=== PATIENT | female | born 1945 | race Caucasian/White ===

== ENCOUNTER 2023-10-11 08:41 | Outpatient (REF) | payer MEDICARE, SELFPAY | END 2023-10-11 08:42 | disposition home or self-care (01) | LOC: CF 08:41 | DX: Z13.89 Encounter for screening for other disorder (principal) ==

== ENCOUNTER 2023-11-02 19:25 | Outpatient (REF) | payer MEDICARE, SELFPAY ==
--- NOTE | ~2023-11-02 | MR_ITS ---
EXAMINATION: MR BRAIN WITHOUT CONTRAST CLINICAL INFORMATION: Cerebellar ataxia. COMPARISON: None available. TECHNIQUE: MRI of the brain was obtained using routine sequences without contrast. FINDINGS: No focal restricted diffusion is demonstrated to suggest acute or subacute cerebral ischemia. No evidence of acute or chronic hemorrhagic products on heme-sensitive imaging. Scattered and partially confluent periventricular, deep white matter, and brainstem T2 FLAIR hyperintensities consistent with moderate underlying microangiopathy. Proportional prominence of the ventricles and sulcal spaces without evidence of obstructive hydrocephalus. No abnormal mass effect. No midline shift. Normal appearance of the pituitary gland. Normal positioning of the cerebellar tonsils. Normal arterial and venous vascular flow voids are present. Normal, homogeneous marrow signal. Mild mucosal thickening of the paranasal sinuses. No signal abnormalities within the mastoids. Bilateral lens extractions. MR/MR head/brain wo con IMPRESSION: 1. No acute intracranial abnormalities. 2. Moderate underlying microangiopathy and generalized cerebral volume loss.
== END 2023-11-02 19:26 | disposition home or self-care (01) ==
LOC: HO.MRI 19:25
PROVIDERS: PCP Nurse Practitioner Family; Visit Provider Psychiatry & Neurology Neurology
DX: G11.9 Hereditary ataxia, unspecified (principal)
CPT/HCPCS: 70551

== ENCOUNTER 2023-12-06 14:38 | Outpatient (REF) | payer MEDICARE, SELFPAY ==
--- NOTE | ~2023-12-06 | MR_ITS ---
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 COMPARISON: 11/02/2023 MRI. TECHNIQUE: MRI of the brain was obtained using precontrast sagittal T1 and coronal T1 and and precontrast axial FLAIR sequences followed by axial and coronal T1-weighted sequences with contrast. Intravenous contrast: Gadavist 5.0 mL. FINDINGS: Redemonstrated are scattered patchy zones of FLAIR/T2 signal hyperintensity in the white matter of both cerebral hemispheres similar in appearance to the previous study with no abnormal enhancement, consistent with chronic ischemic microangiopathy. There is a nonenhancing 7 mm zone of T2 hyperintensity in the right dorsal ashutosh stable in appearance. There is a 2 mm nonenhancing T2 hyperintensity in the right ashutosh more inferiorly unchanged. No intracranial mass lesions, space occupying process or mass effect and no evidence for pathologic intracranial enhancement. MR/MR head/brain w con IMPRESSION: 1. Stable chronic ischemic microangiopathy in the white matter of both cerebral hemispheres and in the right ashutosh. 2. No intracranial mass lesions or pathologic intracranial enhancement. Electronically signed by: Mitchell He MD 12/26/2023 05:46 PM EDT
[2023-12-06] MEDS: gadobutroL 7.5 ML VIAL IVPUSH (15:45)
== END 2023-12-06 14:39 | disposition home or self-care (01) ==
LOC: HO.MRI 14:38
PROVIDERS: PCP Nurse Practitioner Family; Visit Provider Psychiatry & Neurology Neurology
DX: G93.49 Other encephalopathy (principal)
CPT/HCPCS: 70552; A9585

== ENCOUNTER 2024-02-10 09:21 | Day surgery (SDC) | payer MEDICARE, SELFPAY ==
--- NOTE | ~2024-02-10 | FL_ITS ---
FLUOROSCOPIC GUIDED LUMBAR PUNCTURE INDICATION: Leukoencephalopathy TECHNIQUE: Risks and benefits and possible complications were discussed with the patient and the consent form was signed. Patient was placed prone on the fluoroscopy table. The back was prepped and draped in routine sterile fashion. Betadine was used as a skin antiseptic. Utilizing fluoroscopic guidance, the L3-4 interlaminar space was accessed with a 22 gague Rell spinal needle and clear CSF fluid was obtained. Opening pressure was 6 cm H2O. 9 cc of fluid was sent for analysis. The needle was removed without immediate complications. Total fluoroscopy time: 0.3 min FL/FL guided lumbar puncture LP IMPRESSION: Successful fluoroscopic guided lumbar puncture at L3-L4. This procedure was performed by Jake Zamora PA-C and supervised by Dr. York. Electronically signed by: Timothy York MD 02/10/2024 01:50 PM EDT
[2024-02-10 09:56] VITALS: BMI 19.7
[2024-02-10 11:45] VITALS: BP 146/87; PULSE 50; RESP 16; TEMP 36.8; O2SAT 97
[2024-02-10 12:09] VITALS: BP 152/63; PULSE 51; RESP 16; O2SAT 97
[2024-02-10 12:19] LABS: CSF Appearance Clear, Colorless; CSF Tube # 1
[2024-02-10 12:26] LABS: Glucose CSF 67 mg/dL; Total Protein CSF 30.4 mg/dL (15-45)
[2024-02-10 12:39] VITALS: BP 118/83; PULSE 57; RESP 16; TEMP 36.8; O2SAT 97
[2024-02-10 12:51] LABS: Appearance CSF CLEAR; CSF Tube # 4; Color CSF COLORLESS; Red Blood Cell CSF 0 MM*3; White Blood Cell CSF 0 MM*3
[2024-02-13 16:09] LABS: Albumin 3.7 g/dL (3.6-5.1); Albumin, CSF 15.5 mg/dL (8.0-42.0); IgG 1280 mg/dL (600-1540); IgG Synthesis Rate -3.9 mg/24 h (-9.9-3.3); IgG, CSF 2.6 mg/dL (0.8-7.7)
[2024-02-14 12:13] LABS: Oligoclonal Banding Absent (Absent)
[2024-02-15 13:50] LABS: Oligoclonal Serum Yes
== END 2024-02-10 12:44 | disposition home or self-care (01) ==
LOC: HO.SSS 09:22
PROVIDERS: Physician Assistant Surgical; PCP Nurse Practitioner Family; Visit Provider Psychiatry & Neurology Neurology
PROC: 009U3ZZ Drainage of Spinal Canal, Percutaneous Approach (ICD-10-PCS; CPT 62270; principal; 2024-02-10 11:00)
DX: G93.49 Other encephalopathy (principal); G11.9 Hereditary ataxia, unspecified; G47.10 Hypersomnia, unspecified; Z91.81 History of falling; Z88.1 Allergy status to other antibiotic agents
CPT/HCPCS: 62328; 82042; 82945; 83519; 83520; 83916; 84157; 86052; 86255; 86341; 87015; 87070; 87205; 89051; J2003

== ENCOUNTER → 2024-02-10 11:00 | Outpatient (BNV) | payer MEDICARE, SELFPAY | PROVIDERS: PCP Nurse Practitioner Family; Visit Provider Physician Assistant Surgical | DX: G00-G99 Diseases of the nervous system (principal) | CPT/HCPCS: 62328 ==

== ENCOUNTER 2024-08-01 09:30 | Outpatient (RCR) | payer MEDICARE, SELFPAY ==
[2024-06-06 08:51] VITALS: BP 150/59; PULSE 58; RESP 16; TEMP 36.9; O2SAT 96
[2024-06-06 08:52] VITALS: BMI 21.4
[2024-06-06] MEDS: SODIUM CHLORIDE 0.9% IV (09:09)
[2024-06-06] MEDS: [UNRECOGNIZED DRUG - OTHER] IV (09:09)
[2024-06-20 08:14] VITALS: BP 137/58; PULSE 53; RESP 16; TEMP 36.3; O2SAT 97
[2024-06-20] MEDS: SODIUM CHLORIDE 0.9% IV (09:20)
[2024-06-20] MEDS: [UNRECOGNIZED DRUG - OTHER] IV (09:20)
--- NOTE | 2024-06-20 09:28 | HO.INF ---
pt and spouse state they will be travelingin the month of july so next appts will work around their travel arrangements
[2024-07-10 09:57] VITALS: BP 147/65; PULSE 53; RESP 16; TEMP 36.7; O2SAT 97
[2024-07-10] MEDS: [UNRECOGNIZED DRUG - OTHER] IV (10:22)
[2024-07-10] MEDS: SODIUM CHLORIDE 0.9% IV (10:22)
[2024-08-01 09:34] VITALS: BP 144/70; PULSE 56; RESP 20; TEMP 35.9; O2SAT 98
[2024-08-01] MEDS: SODIUM CHLORIDE 0.9% IV (10:00)
[2024-08-01] MEDS: [UNRECOGNIZED DRUG - OTHER] IV (10:00)
== END 2024-08-14 14:05 | disposition home or self-care (01) ==
LOC: HO.INF 09:30
PROVIDERS: Visit Provider Psychiatry & Neurology Neurology
DX: G30.9 Alzheimer's disease, unspecified (principal)
CPT/HCPCS: 96365; J0174

== ENCOUNTER 2024-08-11 10:18 | Outpatient (REF) | payer MEDICARE, SELFPAY ==
--- NOTE | ~2024-08-11 | MR_ITS ---
CLINICAL HISTORY: ALZHEIMERS DISEASE MR Brain without gadolinium Comparison: None Findings: No acute infarct. Cortical/subcortical 26 x 17 mm (AP by transverse dimensions) mass/masslike region within the medial aspect of the right occipital lobe (medial to the atrium of the right lateral ventricle). Further evaluation with contrast enhanced MRI recommended. Cerebral hemispheric volume loss within expected range for age. No evidence of asymmetric mesial temporal volume loss. Mild age-related cerebral hemispheric white matter ischemic changes. Mild FLAIR hyperintensity at/in the vicinity of the cerebellar vermis may be due to small-vessel ischemic disease. No midline shift. No hydrocephalus. Vascular flow voids are intact. Bilateral cataract surgery. The sinuses and mastoid air cells are clear. No focal bone lesion. IMPRESSION: Cortical/subcortical 26 x 17 mm mass/masslike region within the medial aspect of the right occipital lobe (medial to the atrium of the right lateral ventricle). Further evaluation with contrast enhanced MRI recommended. Cerebral hemispheric volume loss within expected range for age. No evidence of asymmetric mesial temporal volume loss. This document has been electronically signed by: Vivi Vang MD on 08/14/2024 13:03:33
--- OUTSIDE RECORDS SUMMARY | 2024-08-11 10:22 | XMS_ITS | Data Portability ---
Author Organization [place] - [facility], Allergy Address [address] [address] Care Team Providers Care Enamel Dipper Name Role Phone MATTEO REES Primary Care Provider Assessment Encounter Date Assessment Date Assessment LastModified by Organization Details LastModified Time 01/02/2024 01/02/2024 HT stable AU. CL & CK both sides working OK increased sensitivity on left transmitter to makes easier in car. Now 5 years old. Not ready to upgrade to new BiCros yet, but wants to proceed in June before HT expires. Recommended Oticon Real 1 miniRITE R/PX Cros #2 R/L 85 receivers #8 single vent domes in chroma beige color $4060. JULIA appt made in june. [email or web address] Not available 01/02/2024 15:13:55 07/04/2024 07/04/2024 Reviewed daily care and maintenance. Downloaded and demoed postdoctoral scholar bruce. Going to [place] soon will do follow up when back from that trip . will need to do real ear next time. [email or web address] Not available 07/04/2024 12:29:50 08/08/2024 08/08/2024 Doing very well. Back from recent trip to [place]. Very pleased with new BiCros aids. Hearing much better. Reviewed daily care and maintenance. Recent diagnosis of Alzheimer's - undergoing infusion therapy to treat. 6mo appt made prior to my fpc. [email or web address] Not available 08/08/2024 11:30:19 Plan of Treatment Reminders Order Date Submit Date Provider Last Modified By Organization Details Last Modified Time Details Appointments ORTIZ Fitting Follow Up (30) 2024 01:30P Buffy ASHRAF, PAYTON Not available Not available Not available Lab None recorded . Referral None recorded . Procedures None recorded . Surgeries None recorded . Imaging None recorded . Medication Orders None recorded . Patient TargetsNo targets recorded. Patient InstructionsNo instructions recorded. Reason for Referral None Reported. Results Created Date Observation Date Name Description Value Unit Range Abnormal Flag Note LastModifiedBy Organization Detail LastModifiedTime 12/07/19 24 07/05/2018 imagi ng/di agnos tic resul t No observ ation record ed. [email or web address] Not Available 05:14:00 12/07/19 24 07/12/2022 imagi ng/di agnos tic resul t No observ ation record ed. [email or web address] Not Available 05:14:06 12/07/19 24 07/31/2020 imagi ng/di agnos tic resul t No observ ation record ed. [email or web address] Not Available 05:14:12 12/07/19 24 07/05/2018 audio gram No observ ation record ed. [email or web address] Not Available 05:15:00 12/07/19 24 12/07/2021 audio gram No observ ation record ed. [email or web address] Not Available 05:15:06 12/07/19 24 07/13/2018 audio gram No observ ation record ed. [email or web address] Not Available 05:15:07 12/07/19 24 07/30/2021 audio gram No observ ation record ed. [email or web address] Not Available 05:15:15 12/07/19 24 07/31/2020 audio gram No observ ation record ed. [email or web address] Not Available 05:15:17 12/07/19 24 08/03/2018 audio gram No observ ation record ed. [email or web address] Not Available 05:15:19 12/07/19 24 08/17/2018 audio gram No observ ation record ed. [email or web address] Not Available 05:15:27 12/07/19 24 12/21/2018 audio gram No observ ation record ed. [email or web address] Not Available 05:15:31 12/07/19 24 02/27/2021 audio gram No observ ation record ed. [email or web address] Not Available 05:15:35 12/07/19 24 03/27/2021 audio gram No observ ation record ed. [email or web address] Not Available 05:15:38 01/02/20 audio gram No observ ation record ed. [email or web address] Not Available 2023 16:10:40 Result Notes None recorded. Problems Name Problem SNOMED Code Status Onset Date Resolution Date Notes Provider Name and Address Organization Details Recorded Time Gastroeso phageal reflux disease without esophagit is 896990222 Active 2022 Gastro-eso phageal reflux disease without esophagiti s; Note: Date Diagnosed: 09/21/2022 2:34 PM (K21.9) Not Available [facility] 03:22:19 Asymmetri iliana sensorine ural hearing loss 190062679 Active 2013 Sensorineu ral hearing los asymmetric ; Note: Date Diagnosed: 02/26/2014 1:52 PM (389.16) Not Available [facility] 4 03:22:19 Sensorine ural hearing loss of bilateral ears 695146151 Active 2015 Sensorineu ral hearing loss, bilateral; Note: Date Diagnosed: 08/14/2015 2:42 PM (H90.3) Not Available [facility] 4 03:22:19 Dysphonia 02957547 Active 2022 Hoarseness ; Note: Date Diagnosed: 09/21/2022 2:34 PM (R49.0) Not Available [facility] 4 03:22:19 Problem Notes None recorded. Procedures Surgical History Date Name Laterality Status Provider Name and Address Organization Details Recorded Time 01/02/2024 Comp Audio (55575) completed JUAN ASHRAF, AUD [address] [facility],[place] [address], [place], [address], [facility] - [facility] 01/02/2024 14:52:34 Imaging Results Imaging Date Name Status LastModified by [facility] Details LastModified Time 07/05/2018 imaging/diagno stic result completed Information not available 12/07/2023 05:14:00 07/12/2022 imaging/diagno stic result completed Information not available 12/07/2023 05:14:06 07/31/2020 imaging/diagno stic result completed Information not available 12/07/2023 05:14:12 07/05/2018 audiogram completed Information not available 12/07/2023 05:15:00 12/07/2021 audiogram completed Information not available 12/07/2023 05:15:06 07/13/2018 audiogram completed Information not available 12/07/2023 05:15:07 07/30/2021 audiogram completed Information not available 12/07/2023 05:15:15 07/31/2020 audiogram completed Information not available 12/07/2023 05:15:17 08/03/2018 audiogram completed Information not available 12/07/2023 05:15:19 08/17/2018 audiogram completed Information not available 12/07/2023 05:15:27 12/21/2018 audiogram completed Information not available 12/07/2023 05:15:31 02/27/2021 audiogram completed Information not available 12/07/2023 05:15:35 03/27/2021 audiogram completed Information not available 12/07/2023 05:15:38 01/02/2024 audiogram completed BARCODE Information no t available 01/02/2024 16:10:40 Procedure Notes None recorded. Medical Equipment None Reported. Medications Name Sig Start Date Stop Date Status Note LastModified by Organization Details LastModified Time doxycycli ne hyclate 100 mg capsule TAKE 1 CAPSULE BY MOUTH TWICE A DAY FOR 7 DAYS active Not Available Not Available No t Available atorvasta tin 10 mg tablet TAKE 1 TABLET BY MOUTH IN THE EVENING active Not Available Not Available No t Available azithromy angeles 250 mg tablet TAKE 2 TABLETS BY MOUTH TODAY, THEN TAKE 1 TABLET DAILY FOR 4 DAYS DIRECTED active Not Available Not Available No t Available metronida zole 0.75 % (37.5 mg/5 gram) vaginal gel INSERT 1 APPLICAT ORFUL VAGINALL Y DAILY AT BEDTIME, FOR 5 DAYS active Not Available Not Available No t Available ketorolac 0.5 % eye drops INSTILL 1 DROP INTO AFFECTED EYE 3 TIMES A DAY STARTING 2 DAYS PRIOR TO SURGERY CONTINUE DIRECTED active Not Available Not Available No t Available benzonata te 100 mg capsule 1 CAPSULE BY MOUTH 3 TIMES A DAY, NEEDED FOR COUGH active Not Available Not Available No t Available doxepin 10 mg/mL oral concentra te TAKE 0.3ML BY MOUTH AT BEDTIME EVERY DAY active Not Available Not Available No t Available zolpidem 5 mg tablet 1 TABLET BY MOUTH DAILY AT BEDTIME NEEDED FOR INSOMNIA active Not Available Not Available No t Available estradiol 0.01% (0.1 mg/gram) vaginal cream INSERT 1 GRAM VAGINALL Y ONCE PER WEEK active Not Available Not Available No t Available albuterol sulfate HFA 90 mcg/actua tion aerosol inhaler INHALE 2 PUFFS INHALATI ON EVERY 6 HOURS NEEDED FOR COUGH. USE WITH SPACER CHAMBER active Not Available Not Available No t Available modafinil 100 mg tablet TAKE 1 TABLET BY MOUTH EVERY DAY IN THE MORNING active Not Available Not Available No t Available multivita min 09/21 completed Medicati on ID: [id number] Br and Name: multivit duque Sen d Method: E-Prescr ibed Sub s Allowed: subs OK Medic ationGen ericName : multivit duque Not Available Not Available Not Available Mucus DM Max ER 60 mg-1,200 mg tablet,ex tended release TAKE 1 TABLET BY MOUTH 2 TIMES A DAY NEEDED FOR COUGH AND CONGESTI ON active Not Available Not Available No t Available Vitals None Recorded Social History None recorded. Functional Status None recorded. Mental Status None recorded. Family History Nothing Reported. Medical History No medical history recorded. Gynecological HistoryNo gynecological history recorded. Obstetrics History GPAL:G 0 P 0 0 0 0 Past Encounters Encounter ID Performer Location Encounter Start Date Encounter Closed Date Diagnosis/Indication Diagnosis SNOMED-CT Code Diagnosis ICD10 Code Diagnosis Note [id number] PAYTON ARORA [address] [place] [address] 01/02/2024 13:55:43 01/02/2024 15:21:20 Sensorineural hearing loss of bilateral ears 804077100 H90.3 [id number] JUAN ASHRAF, PAYTON [facility] [address] [place] [address] 07/04/2024 11:26:28 07/04/2024 13:00:35 Sensorineural hearing loss of bilateral ears 972611601 H90.3 [id number] JUAN ASHRAF, PAYTON [facility] [address] [place] [address] 08/08/2024 10:58:01 08/08/2024 11:56:53 Sensorineural hearing loss of bilateral ears 177881641 H90.3 Health Concerns Section Related Observation LastModified by Organization Detai ls LastModified Time None Recorded Concern Status LastModified by Organization Details LastModified Time None Recorded Advance Directives Directive None Recorded Payers Encounter Date Sequence Insurance Name Policy Number Policy William Covered Member ID William Member ID Guarantor Name 01/02/2024 1 [employer] MEDICARE ADVANTAGE PLAN (MEDICARE REPLACEMENT HMO) [id number] Inés S Wassermann [id number] Inés Wassermann 07/04/2024 1 [employer] - MEDICARE ADVANTAGE PLAN (MEDICARE REPLACEMENT HMO) [id number] 04 Inés S Wassermann [id number] Inés Wassermann 08/08/2024 1 [employer] MEDIC[employer] ADVANTAGE PLAN (MEDICARE REPLACEMENT HMO) [id number] Inés S Wassermann [id number] Inés Wassermann Notes Date Note Type Note Provider Name and Address Organization Details Recorded Time 01/02/2024 text/html 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 Currently wearing Widex Evoke 440 Fashion BTE BICros hearing aid # 1R/2L slim tube with medium double vent domes dispensed 07/10/2018. JUAN ASHRAF, AUD [address] [facility],[address] [address], [place], [address], 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 Currently wearing Widex Evoke 440 Fashion BTE BICros hearing aid # 1R/2L slim tube with medium double vent domes dispensed 07/10/2018. HT stable AU. CL & CK both sides working OK increased sensitivity on left transmitter to makes easier in car. Now 4 years old. Not ready to upgrade to new BiCros yet, but wants to proceed in June. Recommended Oticon Real 1 miniRITE R/PX Cros #2 R/L 85 receivers #8 single vent domes in chroma beige color $4060. JULIA appt made in june. JUAN ASHRAF, AUD [address] [facility],[address] [address], [place], [address], 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 HT stable AU. Currently wearing Oticon Real 1 miniRITE R/PX Cros #2 R/L 85 receivers #8 single vent domes in chroma beige color $4060. JULIA 07/04/2024Set to #3 adaptation. Reviewed daily care and maintenance. Downloaded and demoed postdoctoral scholar bruce. Going to [place] soon will do follow up when back from that trip . will need to do real ear next time. JUAN ASHRAF, AUD [address] [facility],[address] [address], [place], [address], [facility] - [facility] 08/08/2024 11:30:41 OBGyn Episode No OBEpisode recorded.
--- OUTSIDE RECORDS SUMMARY | 2024-08-11 10:22 | XMS_ITS | Continuity of Care Document ---
Author Organization [place] - [facility] No Address [address] [place] [address] Care Team Providers Care Diesel Service Journeyman Name Role Phone MATTEO REES Primary Care Provider Assessment Encounter Date Assessment Date Assessment LastModified by Organization Details LastModified Time 08/08/2024 08/08/2024 Doing very well. Back from recent trip to [place]. Very pleased with new BiCros aids. Hearing much better. Reviewed daily care and maintenance. Recent diagnosis of Alzheimer's - undergoing infusion therapy to treat. 6mo appt made prior to my fci. [email or web address] Not available 08/08/2024 11:30:19 Plan of Treatment Reminders Order Date Submit Date Provider Last Modified By Organization Details Last Modified Time Details Appointments ORTIZ Fitting Follow Up (30) 2024 01:30P PAYTON ARZATE Not available Not available Not available Lab None recorded . Referral None recorded . Procedures None recorded . Surgeries None recorded . Imaging None recorded . Medication Orders None recorded . Patient TargetsNo targets recorded. Patient InstructionsNo instructions recorded. Reason for Referral None Reported. Problems Name Problem SNOMED Code Status Onset Date Resolution Date Notes Provider Name and Address Organization Details Recorded Time Gastroeso phageal reflux disease without esophagit is 933023469 Active 2022 Gastro-eso phageal reflux disease without esophagiti s; Note: Date Diagnosed: 09/21/2022 2:34 PM (K21.9) Not Available [facility] 03:22:19 Asymmetri iliana sensorine ural hearing loss 544700128 Active 2013 Sensorineu ral hearing los asymmetric ; Note: Date Diagnosed: 02/26/2014 1:52 PM (389.16) Not Available [facility] 4 03:22:19 Sensorine ural hearing loss of bilateral ears 960632756 Active 2015 Sensorineu ral hearing loss, bilateral; Note: Date Diagnosed: 08/14/2015 2:42 PM (H90.3) Not Available [facility] 4 03:22:19 Dysphonia 96800618 Active 2022 Hoarseness ; Note: Date Diagnosed: 09/21/2022 2:34 PM (R49.0) Not Available [facility] 4 03:22:19 Problem Notes None recorded. Procedures Surgical History Date Name Laterality Status Provider Name and Address Organization Details Recorded Time 01/02/2024 Comp Audio (61936) completed JUAN ASHRAF, [facility] [address] [facility],[place] [address], [place], [address], [facility] - [facility] 01/02/2024 14:52:34 Imaging Results None recorded. Procedure Notes None recorded. Medical Equipment None [...] multivita min 09/21 completed Medicati on ID: [id number] Br and Name: multivit duque Sen d [...] SNOMED-CT Code Diagnosis ICD10 Code Diagnosis Note [id number] PAYTON ARORA [address] [address] 08/08/2024 10:58:01 08/08/2024 11:56:53 Sensorineural hearing loss of bilateral ears 299680544 H90.3 Health Concerns Section Related Observation LastModified by Organization Detai ls LastModified Time None Recorded Concern Status LastModified by Organization Details LastModified Time None Recorded Payers Encounter Date Sequence Insurance Name Policy Number Policy William Covered Member ID William Member ID Guarantor Name 08/08/2024 1 [employer] MEDICARE ADVANTAGE PLAN (MEDICARE REPLACEMENT HMO) [id number] 04 Inés Snow [id number] Inés Snow Notes Date Note Type Note Provider Name and Address Organization Details Recorded Time 08/08/2024 text/html 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 HT stable AU. Currently wearing Oticon Real 1 miniRITE R/PX Cros #2 R/L 85 receivers #8 single vent domes in chroma beige color $4060. JULIA 07/04/2024Set to #3 adaptation. Reviewed daily care and maintenance. Downloaded and demoed instructional developer bruce. Going to [place] soon will do follow up when back from that trip . will need to do real ear next time. JUAN ASHRAF, [facility] [address] [facility],[place] [address], [place], [address], [facility] - [facility] 08/08/2024 11:30:41 OBGyn Episode No OBEpisode recorded.
--- OUTSIDE RECORDS SUMMARY | 2024-08-11 10:22 | XMS_ITS | Patient Health Record ---
Author Organization [facility] Address [address] [facility] [address] [place] [address] Support Name Relationship Address Phone MARIA M LUKE Guarantor Unknown [phone] Reason For Referral No Information Plan Of Treatment No Information Insurance Providers Payer Name Payer Address Payer Phone Subscriber Number Group Number Insured Name Patient Relationship to Insured Coverage Start Date Coverage End Date [facility] [address] [place] [address] [phone] [id number] MARIA M MORTON Self - patient is the insured
--- OUTSIDE RECORDS SUMMARY | 2024-08-11 10:22 | XMS_ITS | Clinical Summary ---
Author Organization [facility] Address [address] [place] [address] Care Team Providers Care Manager Culinary Name Role Phone David Lindo MD Primary Care Provider David Lindo MD Unavailable [phone] Medications Multiple Vitamin (Multi-Vitamin) Tab Take 1 daily. 0 03/19/2010 Active Calcium Carbonate (Calcium 600) 600 MG tablet 1 po bid 0 03/19/2010 Activ e Aspirin (ST SALVATORE) 81 MG EC tablet TAKE 1 TABLET DAILY. 0 03/19/2010 Active Ascorbic Acid (Vitamin C) 1000 MG tablet 1 po qd 0 03/19/2010 Acti ve Azithromycin (ZITHROMAX) 250 MG tablet TAKE 2 TABLETS ON DAY 1 THEN TAKE 1 TABLET A DAY FOR 4 DAYS. 6 0 06/18/2010 Active Fluticasone-Sha meterol (Advair Diskus) 250-50 MCG/ACT diskus inhaler INHALE 1 PUFFS Twice daily 1 puff 3 06/18/2010 Active FLUTICASONE PROPIONATE, NASAL, (FT Allergy Relief 24 HR) 50 MCG/ACT nasal spray USE 2 SPRAYS IN EACH NOSTRIL ONCE DAILY 1 3 06/18/2010 Active Moxifloxacin HCl (Avelox) 400 MG tablet Take 1 tablet daily 10 tablet 0 08/12/2010 Active Active Problems Problem Noted Date Diagnosed Date Pneumonia 08/12/2010 Solitary pulmonary nodule 05/12/2010 Overview (05/22/2023): Annotation - [id number]: 12 mm Cough 04/21/2010 Pneumonia 04/04/2010 Mitral valve prolapse syndrome 03/19/2010 Bronchiectasis 03/19/2010 Acute bronchitis 03/19/2010 Osteopenia 03/19/2010 Hyperlipidemia 02/24/2010 Impaired fasting glucose 02/24/2010 Immunizations Name Administration Dates Next Due COVID-19, mRNA (Moderna Pre Fall 2022) bivalent, 25 mcg/0.25 ml (6 months - 11 years) or 50 mcg/0.5 ml (12+ years) 10/01/2022 COVID-19, mRNA (Pfizer Pre F all 2022) Monovalent, 30 mcg/0.3 ml 01/14/2021,06/09/2020,05/19/2020 Covid-19, mRNA (Pfizer Comir monty) Seasonal, 30 mcg/0.3 mL (12+) 01/24/2023 Covid-19, mRNA (Pfizer Pre F 2022) Bivalent, 30 mcg/0.3 ml whitney-sucrose (12+) dose 01/06/2022 Covid-19, mRNA (Pfizer Pre F 2022) Monovalent, 30 mcg/0.3 ml whitney-sucrose (12+) 08/13/2021 Influenza (SEASONAL) - 04/18/2004 Influenza, Quad, Inactivated , Adjuvanted, Preser Fr 01/24/2023,01/12/2021 Influenza,high dose seasonal ,trivalent,PF (Fluzone HD) 12/18/2018,01/09/2018 Influenza,high-dose, Quadrivalent 01/06/2022,02/2020 Influenza,split(incl.purifie d surface antigen) 02/11/2009,03/23/2005 PCV-20 03/15/2023 PPV23 (Pneumovax) 12/31/2003 RSV Recombinant Adjuvant, 0.5 ML (Arexvy) 2022 Rubella 12/31/2003 Td (adult), adsorbed 09/11/2021,03/23/2005 Tdap 04/06/2010 Zoster (Shingrix) 01/20/2022,07/13/2021 Zoster (Zostavax) 06/16/2007 Family History Medical History Relation Name Comments CAD/PVD - Early Father Coronary Art marisa Disease : Father Cancer - Lung Mother Lung Cancer : Mother Relation Name Status Comments Father Mother Social History Tobacco Use Types Packs/Day Years Used Date Smoking Tobacco: Never Assessed Comments Unknown Sex and Gender Information Value Date Recorded Sex Assigned at Not on file Legal Sex Female 9:19 PM EDT Gender Identity Not on file Sexual Orientation Not on file Last Filed Vital Signs Vital Sign Reading Time Taken Comments Blood Pressure 124/66 08/03/2010 2:43 PM EDT Pulse 60 08/03/2010 3:00 PM EDT Temperature 36.8 ??C (98.2 ??F) 08/03/2010 2:43 PM ED T Respiratory Rate 14 08/03/2010 3:00 PM EDT Oxygen Saturation - - Inhaled Oxygen Concentration - - Weight 60.5 kg (133 lb 6.4 oz) 08/03/2010 2:43 P M EDT Height 168.9 cm (5' 6.5 ) 04/21/2010 11:07 AM ES T Body Mass Index 21.21 04/21/2010 11:07 AM EST Plan of Treatment Health Maintenance Due Date Last Done Comments COVID-19 Vaccine ( season) 2023 01/24/2023, 10/01/2022, 01/06/2022, Additional history exists Influenza (#1) 2023 01/24/2023, 12/18, 01/12/2021, Additional history exists DTaP/Tdap/Td (3 - Td or Tdap) 09/12/2031 09/11/2021, 04/06/2010, 03/23/2005 Zoster (Zostavax) Discontinued 06/16/2007 Bone Density Completed 04/03/2008 Mammogram/Breast Imaging Discontinued 02/10/2010, 01/17 Zoster (Shingrix) Completed 01/20/2022, , 06/16/2007 Pneumococcal 50+ years Completed 03/15/2023, 2003 RSV Completed 03/29/2023 HPV Vaccine Aged Out No longer eligi ble based on patient's age to complete this topic Hep A Aged Out No longer eligi ble based on patient's age to complete this topic Hep B Aged Out No longer eligi ble based on patient's age to complete this topic Hib Aged Out No longer eligi ble based on patient's age to complete this topic Meningococcal ACWY Aged Out No longer eligible based on patient's age to complete this topic Pap Smear Discontinued Procedures Procedure Name Priority Date/Time Associated Diagnosis Comments MAMMOGRAM SCREENING Routine 02/10/2010 1 2:00 AM EDT DUAL ENERGY DEXA BONE DENSITY ONE/MORE SITES AXIAL SKEL 04/03/2008 12:00 AM EST from Last 3 Months or Most Recently Relevant to Health Maintenance Results * MAMMOGRAM SCREENING (02/10/2010 12:00 AM EDT) MAMMOGRAM RESULT negative PHCT CONVERSIONS Anatomical Region Laterality Modality Other 02/10/2010 us David Lindo MD IMAGING-ATRIUS Final Result * DUAL ENERGY DEXA BONE DENSITY ONE/MORE SITES AXIAL SKEL (04/03/2008 12:00 AM EST) Narrative 04/03/2008 12:00 AM EST Ordered by an unspecified provider. us Unknown Provider GENERAL IMAGING- OTHER Final Re sult from Last 3 Months or Most Recently Relevant to Health Maintenance Care Teams Manager Culinary Relationship Specialty Start Date End Date David Lindo MD [address] [place] [address] PCP - General 11/22/22 David Lindo MD [address] [place] [address] PCP - Backup PCP Internal Medicine 05/19/23
--- OUTSIDE RECORDS SUMMARY | 2024-08-11 10:22 | XMS_ITS | Continuity of Care Document ---
Author Organization [facility] Address [address] [address]- [facility] Name Relationship Address Phone MARIA M URBINA spouse Unknown Unavailable Care Team Providers Care Floor Coverings Salesperson Name Role Phone Luiza De Leon Primary Care Physician [phone] Encounter [facility] Date(s): 07/11/24 - 08/10/[address] [address]- Attending Physician: Shandra Milian Admitting Physician: AdmtrShandra Referring Physician: Admtr [id number] Encounter Type: Triage Allergies, Adverse Reactions, Alerts Substance Criticality Severity Reaction Reaction Severity Status Bactrim Nausea and vomiting Active Immunizations Given and Recorded Vaccine Date Status Refusal Reason influenza virus vaccine, inactivated 12/21/23 Julio rded influenza virus vaccine, inactivated 01/24/23 Julio rded influenza virus vaccine, inactivated 01/06/22 Julio rded influenza virus vaccine, inactivated 1 01/12/21 Re corded influenza virus vaccine, inactivated 12/28/19 Julio rded influenza virus vaccine, inactivated 12/18/18 Julio rded influenza virus vaccine, inactivated 2 01/15/18 Gi byron influenza virus vaccine, inactivated 01/09/18 Julio rded influenza virus vaccine, inactivated 3 01/20/17 Gi byron influenza virus vaccine, inactivated 4 01/16/16 Gi byron influenza virus vaccine, inactivated 02/04/15 Give n influenza virus vaccine, inactivated 01/17/14 Give n influenza virus vaccine, inactivated 01/24/13 Give n influenza virus vaccine, inactivated 5 01/27/12 Gi byron SARS-CoV-2(COVID-19)mRNA-LNP vac([id number]) 12/21/23 Recorded SARS-CoV-2(COVID-19)mRNA-LNP vac(ofc951) 01/24/23 Recorded RSV vaccine preF3, recombinant 03/29/23 Recorded pneumococcal 20-valent conjugate vaccine 03/15/23 Given [id number]-[id number] bivalent booster vax 10/01/22 Recorded zoster vaccine, inactivated 01/20/22 Recorded zoster vaccine, inactivated 07/13/21 Recorded [id number] 12y+ bivalent booster vax 01/06/22 Recorded tetanus-diphtheria toxoids (Td) 6 09/11/21 Given SARS-CoV-2 mRNA (gblscmt-jlpz-oqaxd) vax 08/13/21 Recorded SARS-CoV-2 (COVID-19) mRNA BNT-162b2 vac 01/14/21 Recorded SARS-CoV-2 (COVID-19) mRNA BNT-162b2 vac 06/09/20 Given SARS-CoV-2 (COVID-19) mRNA BNT-162b2 vac 05/19/20 Recorded pneumococcal 13-valent vaccine 08/07/14 Given Pneumococcal Vacc (oldterm) 06/11/11 Given Fluvirin (oldterm) 12/28/10 Given Tet/diphth/pertussis, acel (oldterm) 7 12/28/10 Gi byron Zoster Vaccine Live 8 04/19/02 Recorded [facility] 3Result Comment: [01/20/2017] [facility] [place] [id number] 4Admin Note: Big Y High Dose 5Admin Note: VIS GIVEN 6Result Comment: [facility]# [id number] Pt signed an Advance Beneficiary Notice of Non Coverage form 7Admin Note: 6-11 GIVEN AT [facility] [place] 8Location History: [facility] Medications Apnea Rx Apnea Rx, See Instructions, # 1 each, Refills 0, Tot. Refills 0, Maintenance, Use when sleeping to treat sleep apnea G47.33, 11/25/23 8:08:00 PM EDT, Supply Start Date: 11/25/23 Status: Ordered Quantity: 1.0 Unit: each Repeat number: 1 atorvastatin 10 mg oral tablet 1 tablet, By Mouth, Daily in PM, # 90 tablet, 1 Refills, Maintenance, 11/02/23 10:47:00 AM EDT, [id number], 170, cm, 09/14/23 12:47:00 EDT, Height, 59.5, kg, 04/27/22 14:19:00 EST, Dry Weight Start Date: 11/02/23 Status: Ordered Quantity: 90.0 Unit: tablet Repeat number: 1 atorvastatin 10 mg oral tablet 1 tablet = 10 mg, By Mouth, Every other day, 0 Refills, Maintenance, 06/19/24 11:50:00 AM EST, Partial fill upon patient request if the prescription is for a schedule II opioid drug. Start Date: 06/19/24 Status: Ordered Repeat number: 1 AutoASV min EPAP 6 max EPAP 10 min PS 3 max PS 15 AutoASV min EPAP 6 max EPAP 10 min PS 3 max PS 15, See Instructions, # 1 each, Refills 0, Tot. Refills 0, Maintenance, use when sleeping to treat sleep apnea, 10/02/22 2:14:00 PM EDT, Supply Start Date: 10/02/22 Status: Ordered Quantity: 1.0 Unit: each Repeat number: 1 Cod Liver Oil By Mouth, Daily, 0 Refills, Maintenance, 06/19/24 11:50:00 AM EST, Partial fill upon patient request if the prescription is for a schedule II opioid drug. Start Date: 06/19/24 Status: Ordered Repeat number: 1 doxepin 10 mg/ml oral concentrate 0.3 mL = 3 mg, By Mouth, Daily at bedtime, # 9 mL, 5 Refills, Maintenance, 06/11/24 8:32:00 PM EST, [facility]/pharmacy #[id number], refill for doxepin oral concentrate while PA is processing for tablets, 170, cm,02/28/24 14:21:00 EST, Height Start Date: 06/11/24 Status: Ordered Quantity: 9.0 Unit: mL Repeat number: 6 Indication: Psychophysiologic insomnia doxepin 3 mg oral tablet 1 tablet = 3 mg, By Mouth, Daily at bedtime, # 30 tablet, 0 Refills, Maintenance, 04/30/24 6:04:00 PM EST, Tablet, [id number], Partial fill upon patient request if the prescription is for a schedule II opioid drug., 170, cm, 02/28/24 14:21:00 EST, Height Start Date: 04/30/24 Status: Ordered Quantity: 30.0 Unit: tablet Repeat number: 1 Indication: Psychophysiologic insomnia Magnesium Carbonate By Mouth, Daily, 0 Refills, Maintenance, 06/19/24 11:49:00 AM EST, Partial fill upon patient request if the prescription is for a schedule II opioid drug. Start Date: 06/19/24 Status: Ordered Repeat number: 1 Multivitamin By Mouth, Daily, 0 Refills, Maintenance, 11/24/10 11:17:49 AM EDT Start Date: 11/24/10 Status: Ordered Repeat number: 1 Probiotic Formula By Mouth, Daily, 0 Refills, Maintenance, 06/19/24 11:50:00 AM EST, Partial fill upon patient request if the prescription is for a schedule II opioid drug. 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 Hearing loss, sensorineural Confirmed Active Hypercholesteremia Confirmed Active Hyperlipidemia - ASCVD risk 8.0% as of 01/2016 - on a statin Confirmed Active Hypersomnia due to medical condition Confirmed Active Mild pulmonary hypertension Confirmed Active Night sweats Confirmed Active ROD (AHI 10.4, min SpO2 85%) Confirmed Active Asymmetric septal hypertrophy Confirmed Active Recurrent infective cystitis Confirmed Active Spasmodic Torticollis Confirmed 06/29/11 Active TMJ (temporomandibular joint syndrome) Confirmed Active Treatment-emergent central sleep apnea Confirmed Active Small vessel disease Confirmed Active 1Thought to be from [facility] Social History Social History Type Response Smoking Status Former smoker, quit more than 30 days ago entered on: 10/14/22 Sex Sex Representation Female (finding) Patient Care team information Care Team Personnel Name: Luiza De Leon Position: [facility] PCO Associate Professional Member Role: PCP Address: [address] [place] [address]- Telecom: Care Team Related Persons Name: MARIA M URBINA Insurance Providers [facility]or [facility] Information #: 1 Payer: [employer] MEDICARE ADV HMO Member Number: NA Policy Number: NA Group Number: NA
== END 2024-08-11 10:19 | disposition home or self-care (01) ==
LOC: HO.MRI 10:18
PROVIDERS: PCP Physician Assistant; Visit Provider Psychiatry & Neurology Neurology
DX: G30.9 Alzheimer's disease, unspecified (principal)
CPT/HCPCS: 70551

== ENCOUNTER → 2024-08-11 10:34 | Outpatient (BNV) | payer MEDICARE, SELFPAY | PROVIDERS: PCP Physician Assistant; Visit Provider Radiology Diagnostic Radiology | DX: G30.9 Alzheimer's disease, unspecified (principal); F02.80 Dementia in other diseases classified elsewhere, unspecified severity, without behavioral disturbance, psychotic disturbance, mood disturbance, and anxiety | CPT/HCPCS: 70551 ==

== ENCOUNTER 2024-08-17 14:59 | Outpatient (REF) | payer MEDICARE, SELFPAY ==
--- NOTE | ~2024-08-17 | MR_ITS ---
EXAMINATION: MR BRAIN WITH CONTRAST CLINICAL INFORMATION: Masslike abnormality medial segment right occipital lobe on last MRI for 05/10/2024 COMPARISON: None available. TECHNIQUE: MRI of the brain was obtained using routine sequences with contrast. Intravenous contrast: Gadavist 6mL. FINDINGS/ MR/MR head/brain w con IMPRESSION: Post contrast triangular T1 sequences were obtained and reveals no focal enhancement, mass along medial segment of right occipital lobe as was questioned on the last MRI. There is no mass effect either. Abnormality seen in bilateral mesial occipital lobes right greater than left on FLAIR sequence is new since the MRI of 12/06/2023 and may be related to nonspecific edema gyral edema, ischemia or demyelination secondary to autoimmune or inflammatory process. Recommend ophthalmic correlation and if clinically indicated a follow-up CT/MRI in 3 months. Electronically signed by: Gera Pop MD 08/17/2024 04:19 PM EDT
--- OUTSIDE RECORDS SUMMARY | 2024-08-17 15:05 | XMS_ITS | Data Portability ---
Author Organization [place] [facility], [facility] Address [address] [address] Care Team Providers Care Industrial Electrical Engineer Name Role Phone MATTEO REES Primary Care Provider [phone] Assessment Encounter Date Assessment Date Assessment LastModified [...] color $4060. JULIA appt made in june. [email or web address] Not available 01/02/2024 15:13:55 07/04/2024 07/04/2024 Reviewed daily care and maintenance. Downloaded and demoed etcher photoengraving bruce. Going to [place] soon will do follow up when back from that trip . will need to do real ear next time. [email or web address] Not available 07/04/2024 12:29:50 08/08/2024 08/08/2024 Doing very well. Back from recent trip to [place]. Very pleased with new BiCros aids. Hearing much better. Reviewed daily care and maintenance. Recent diagnosis of Alzheimer's - undergoing infusion therapy to treat. 6mo appt [place] [facility]. Not available 08/08/2024 11:30:19 Plan of Treatment [...] Gastroeso phageal reflux disease without esophagit is [id number] Active 2022 Gastro-eso phageal reflux disease without esophagiti s; Note: Date Diagnosed: 09/21/2022 2:34 PM (K21.9) Not Available [facility] 4 03:22:19 Asymmetri iliana sensorine ural hearing loss 681779456 Active 2013 Sensorineu ral hearing los asymmetric ; Note: Date Diagnosed: 02/26/2014 1:52 PM (389.16) Not Available [facility] 4 03:22:19 Sensorine ural hearing loss of bilateral ears 357907167 Active 2015 Sensorineu ral hearing loss, bilateral; Note: Date Diagnosed: 08/14/2015 2:42 PM (H90.3) Not Available [facility] 4 03:22:19 Dysphonia 32201906 Active 2022 Hoarseness ; Note: Date Diagnosed: 09/21/2022 2:34 PM (R49.0) Not Available [facility] 4 03:22:19 Problem Notes None recorded. Procedures Surgical History Date Name Laterality Status Provider Name and Address Organization Details Recorded Time 01/02/2024 Comp Audio 82869 completed JUAN ASHRAF, [address],[place] [address], [place], [address], [facility] - [facility] 01/02/2024 14:52:34 Imaging Results Imaging Date Name Status LastModified by [facility] Details LastModified Time 07/05/2018 imaging/diagno stic result [...] multivita min 09/21 completed Medicati on ID: [id number] Br and Name: multivit duque Sen d [...] SNOMED-CT Code Diagnosis ICD10 Code Diagnosis Note [id number] PA[address] [place] [address] [place] [address] 01/02/2024 13:55:43 01/02/2024 15:21:20 Sensorineural hearing loss of bilateral ears 940887611 H90.3 39853 JUAN RAMOSEVITT, PAYTON ORTIZ [address] [place] [address] 07/04/2024 11:26:28 07/04/2024 13:00:35 Sensorineural hearing loss of bilateral ears 360130799 H90.3 28704 JUAN PASCALE, PAYTON ORTIZ - [address] [place] [address] 08/08/2024 10:58:01 08/08/2024 11:56:53 Sensorineural hearing loss of bilateral ears 817315242 H90.3 Health Concerns Section Related Observation LastModified by Organization Detai ls LastModified Time None Recorded Concern Status LastModified by Organization Details LastModified Time None Recorded Advance Directives Directive None Recorded Payers Encounter Date Sequence Insurance Name Policy Number Policy William Covered Member ID William Member ID Guarantor Name 01/02/2024 1 [employer] MED[employer]ARE ADVANTAGE PLAN (MEDICARE REPLACEMENT HMO) [id number] Inés S Wassermann [id number] Inés Wassermann 07/04/2024 1 [employer] - MEDICARE ADVANTAGE PLAN (MEDICARE REPLACEMENT HMO) [id number] 04 Inés S Wassermann [id number] Inés Wassermann 08/08/2024 1 [employer] MEDICARE ADVANTAGE PLAN (MEDICARE REPLACEMENT HMO) [id number] 04 Inés S Wassermann [id number] Inés Wassermann Notes Date Note Type Note Provider Name and Address Organization Details Recorded Time 01/02/2024 text/html 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 Currently wearing Widex Evoke 440 Fashion BTE BICros hearing aid # 1R/2L slim tube with medium double vent domes dispensed 07/10/2018. JUAN ASHRAF, AUD [address] [place] [address],[place] [address], [place], [address], [facility] - [facility] 01/02/2024 15:14:08 07/04/2024 text/html Known bilateral [...] made in june. 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 HT stable AU. Currently wearing Oticon Real 1 miniRITE R/PX Cros #2 R/L 85 receivers #8 single vent domes in chroma beige color $4060. JULIA 07/04/2024Set to #3 adaptation. Reviewed daily care and maintenance. Downloaded and demoed etcher photoengraving bruce. Going to [place] soon will do follow up when back from that trip . will need to do real ear next time. JUAN ASHRAF, AUD [address] [facility],[place] [address], [place], [address], [facility] - [facility] 08/08/2024 11:30:41 OBGyn Episode No OBEpisode recorded.
--- OUTSIDE RECORDS SUMMARY | 2024-08-17 15:05 | XMS_ITS | Continuity of Care Document ---
Author Organization [facility] Address [address] [address]- [facility] Name Relationship Address Phone MARIA M URBINA spouse Unknown Unavailable Care Team Providers Care Wound Nurse Name Role Phone Luiza De Leon Primary Care Physician Encounter [facility] Date(s): 07/12/24 - 08/11/[address] [address]- Attending Physician: Shandra Milian Admitting Physician: AdmtrShandra [...] vaccine, inactivated 5 01/27/12 Gi byron SARS-CoV-2(COVID-19)mRNA-LNP vac(sak209) 12/21/23 Recorded SARS-CoV-2(COVID-19)mRNA-LNP vac(tlz542) 01/24/23 Recorded RSV vaccine preF3, recombinant 03/29/23 Recorded pneumococcal 20-valent conjugate vaccine 03/15/23 Given [id number] bivalent booster vax 10/01/22 Recorded zoster vaccine, inactivated 01/20/22 Recorded zoster vaccine, inactivated 07/13/21 Recorded [id number]-PqC-3sPLO 12y+ bivalent booster vax 01/06/22 Recorded tetanus-diphtheria toxoids (Td) 6 09/11/21 Given SARS-CoV-2 mRNA (inohgms-lhcm-heqiv) vax 08/13/21 Recorded SARS-CoV-2 (COVID-19) mRNA BNT-162b2 vac 01/14/21 Recorded SARS-CoV-2 (COVID-19) mRNA BNT-162b2 vac 06/09/20 Given SARS-CoV-2 (COVID-19) mRNA BNT-162b2 vac 05/19/20 Recorded pneumococcal 13-valent vaccine 08/07/14 Given Pneumococcal Vacc (oldterm) 06/11/11 Given Fluvirin (oldterm) 12/28/10 Given Tet/diphth/pertussis, acel (oldterm) 7 12/28/10 Gi byron Zoster Vaccine Live 8 04/19/02 Recorded 1[facility] 3Result Comment: [01/20/2017] [facility] [id number] 4Admin Note: Big Y High Dose 5Admin Note: VIS GIVEN 6Result Comment: [facility]# [id number] Pt signed an Advance Beneficiary Notice of Non Coverage form 7Admin Note: 6-11 GIVEN AT [facility] IN [place] 8Location History: [facility] Medications Apnea Rx Apnea Rx, See [...] Maintenance, 11/02/23 10:47:00 AM EDT, [facility], 170, cm, 09/14/23 12:47:00 EDT, Height, 59.5, [...] 5 Refills, Maintenance, 06/11/24 8:32:00 PM EST, [facility]/pharmacy #[id number], refill for doxepin oral concentrate [...] disease Confirmed Active 1Thought to be from [facility] Social History Social History Type Response Smoking Status Former smoker, quit more than 30 days ago entered on: 10/14/22 Sex Sex Representation Female (finding) Patient Care team information Care Team Personnel Name: Luiza De Leon Position: [facility] PCO Associate Professional Member Role: PCP Address: [address] [place] [address]- Telecom: Care Team Related Persons Name: MARIA M URBINA Insurance Providers [facility]: 1 Payer: [employer] MEDICARE ADV HMO Member Number: NA Policy Number: NA Group Number: NA
--- OUTSIDE RECORDS SUMMARY | 2024-08-17 15:05 | XMS_ITS | Patient Health Record ---
Author Organization [facility] Address [address] [place] [address] Support Name Relationship Address Phone MARIA M LUKE Guarantor Unknown [phone] Reason For Referral No Information Plan Of Treatment No Information Insurance Providers Payer Name Payer Address Payer Phone Subscriber Number Group Number Insured Name Patient Relationship to Insured Coverage Start Date Coverage End Date [facility] [address] [place] [address] [id number] MARIA M MORTON Self - patient is the insured
[2024-08-17] MEDS: gadobutroL 7.5 ML VIAL IVPUSH (15:29)
== END 2024-08-17 15:00 | disposition home or self-care (01) ==
LOC: HO.MRI 14:59
PROVIDERS: PCP Physician Assistant; Visit Provider Psychiatry & Neurology Neurology
DX: G93.9 Disorder of brain, unspecified (principal)
CPT/HCPCS: 70552; A9585

== ENCOUNTER → 2024-08-17 15:09 | Outpatient (BNV) | payer MEDICARE, SELFPAY | PROVIDERS: PCP Physician Assistant; Visit Provider Radiology Diagnostic Radiology | DX: G30.9 Alzheimer's disease, unspecified (principal); F02.80 Dementia in other diseases classified elsewhere, unspecified severity, without behavioral disturbance, psychotic disturbance, mood disturbance, and anxiety | CPT/HCPCS: 70552 ==

== ENCOUNTER 2024-08-23 15:47 | Outpatient (REF) | payer MEDICARE, SELFPAY ==
[2024-08-23 15:58] LABS: MANUAL DIFF FLAG NO
--- OUTSIDE RECORDS SUMMARY | 2024-08-23 16:11 | XMS_ITS | Patient Health Record ---
Author Organization [facility] Address [address] [place] [address] Support Name Relationship Address Phone MARIA M LUKE Guarantor Unknown [phone] Reason For Referral No Information Plan Of Treatment No Information Insurance Providers Payer Name Payer Address Payer Phone Subscriber Number Group Number Insured Name Patient Relationship to Insured Coverage Start Date Coverage End Date [facility] [address] [place] [address] [id number] MARI AM MORTON Self - patient is the insured
--- OUTSIDE RECORDS SUMMARY | 2024-08-23 16:11 | XMS_ITS | Clinical Summary ---
Author Organization [facility] Address [address] [place] [address] Care Team Providers Care Evaluation Manager Name Role Phone David Lindo MD Primary Care Provider [phone] David Lindo MD Unavailable [phone] Medications Multiple Vitamin (Multi-Vitamin) Tab Take 1 [...] pulmonary nodule 05/12/2010 Overview (05/22/2023): Annotation - [id number]: 12 mm Cough 04/21/2010 Pneumonia 04/04/2010 Mitral [...] Recently Relevant to Health Maintenance Care Teams Evaluation Manager Relationship Specialty Start Date End Date David Lindo MD [address] [place] [address] PCP - General 11/22/22 David Lindo MD [address] [place] [address] PCP - Backup PCP Internal Medicine 05/19/23
--- OUTSIDE RECORDS SUMMARY | 2024-08-23 16:11 | XMS_ITS | Data Portability ---
Author Organization [place] [facility], [facility] Address [address] [address] Care Team Providers Care Operations Manager Name Role Phone MATTEO REES Primary Care [...] color $4060. JULIA appt made in june. [email or web address] Not available 01/02/2024 15:13:55 07/04/2024 07/04/2024 Reviewed daily care and maintenance. Downloaded and demoed filter filler bruce. Going to [place] soon will do follow up when back from that trip . will need to do real ear next time. Not available 07/04/2024 12:29:50 08/08/2024 08/08/2024 Doing very well. Back from recent trip to [place]. Very pleased with new BiCros aids. Hearing much better. Reviewed daily care and maintenance. Recent diagnosis of Alzheimer's - undergoing infusion therapy to treat. 6mo appt made prior to my chcf. [email or web address] Not available 08/08/2024 11:30:19 Plan of Treatment [...] Gastroeso phageal reflux disease without esophagit is 128457237 Active 2022 Gastro-eso phageal reflux disease without esophagiti s; Note: Date Diagnosed: 09/21/2022 2:34 PM (K21.9) Not Available [facility] 4 03:22:19 Asymmetri iliana sensorine ural hearing loss 898865048 Active 2013 Sensorineu ral hearing los asymmetric ; Note: Date Diagnosed: 02/26/2014 1:52 PM (389.16) Not Available [facility] 4 03:22:19 Sensorine ural hearing loss of bilateral ears 449973015 Active 2015 Sensorineu ral hearing loss, bilateral; Note: Date Diagnosed: 08/14/2015 2:42 PM (H90.3) Not Available [facility] 4 03:22:19 Dysphonia 78274500 Active 2022 Hoarseness ; Note: Date Diagnosed: 09/21/2022 2:34 PM (R49.0) Not Available [facility] 4 03:22:19 Problem Notes None recorded. Procedures Surgical History Date Name Laterality Status Provider Name and Address Organization Details Recorded Time 01/02/2024 Comp Audio [id number] completed JUAN ASHRAF, [address],[place] [address], [place], [address], [facility] - [facility] 01/02/2024 14:52:34 Imaging Results Imaging Date Name Status LastModified by [facility] Details LastModified Time 07/05/2018 imaging/diagno [...] multivita min 09/21 completed Medicati on ID: [id number] Br and Name: multivit duque Sen d [...] SNOMED-CT Code Diagnosis ICD10 Code Diagnosis Note [id number] PA[id number] [place] [address] 01/02/2024 13:55:43 01/02/2024 15:21:20 Sensorineural hearing loss of bilateral ears 751175504 H90.3 [id number] JUAN ASHRAF, PA[address] [facility] [address] [place] [address] 07/04/2024 11:26:28 07/04/2024 13:00:35 Sensorineural hearing loss of bilateral ears 409906299 H90.3 [id number] JUAN ASHRAF, PAYTON ORTIZ - [address] [facility] [place] [address] 08/08/2024 10:58:01 08/08/2024 11:56:53 Sensorineural hearing loss of bilateral ears 644386439 H90.3 Health Concerns Section Related Observation LastModified by Organization Detai ls LastModified Time None Recorded Concern Status LastModified by Organization Details LastModified Time None Recorded Advance Directives Directive None Recorded Payers Insurance Date Sequence Insurance Name Policy Number Policy William Covered Member ID William Member ID Guarantor Name 08/21/2024 1 [employer] - MEDICARE ADVANTAGE PLAN (MEDICARE REPLACEMENT HMO) [id number] 04 Inés Snow [id number] Inés Snow Notes Date Note Type Note Provider Name and Address Organization Details Recorded Time 01/02/2024 text/html 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 Currently wearing Widex Evoke 440 Fashion BTE BICros hearing aid # 1R/2L slim tube with medium double vent domes dispensed 07/10/2018. JUAN ASHRAF, AUD [address] [place] [address], [address], [facility] - [facility] 01/02/2024 15:14:08 07/04/2024 text/html Known [...] made in june. JUAN ASHRAF, AUD [address] [facility],[address] [address] [address], [place], [address], [place] [facility] 07/04/2024 12:30:23 08/08/2024 text/html 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 HT stable AU. Currently wearing Oticon Real 1 miniRITE R/PX Cros #2 R/L 85 receivers #8 single vent domes in chroma beige color $4060. JULIA 07/04/2024Set to #3 adaptation. Reviewed daily care and maintenance. Downloaded and demoed filter filler bruce. Going to [place] soon will do follow up when back from that trip . will need to do real ear next time. JUAN ASHRAF, AUD [address] [facility],[address] [address] [address], [place], [address], [place] - [facility] 08/08/2024 11:30:41 OBGyn Episode No OBEpisode recorded.
[2024-08-23 17:16] LABS: Basophils Absolute Auto 0.1 X10*3/uL (0.0-0.2); Basophils Percent Auto 1.1 % (0-2); Eosinophils Absolute Auto 0.2 X10*3/uL (0.0-0.4); Hematocrit 39.6 % (37.0-47.0); Hemoglobin 13.2 g/dl (12.0-16.0); Imm Gran Abs Auto 0.03 X10*3/uL (0.00-0.03); Imm Gran Pct Auto 0.4 % (0.0-0.4); Lymphocytes Absolute Auto 1.6 X10*3/uL (1.2-4.9); Lymphocytes Percent Auto 21.5 % (20-40); Mean Corpuscular HGB Conc 33.3 g/dl (31.0-35.0); Mean Corpuscular Hemoglobin 29.9 pg (27.0-33.0); Mean Corpuscular Volume 89.6 fL (80.0-98.0); Mean Platelet Volume 10.3 fL (9.4-12.3); Monocytes Absolute Auto 0.8 X10*3/uL (0.1-1.2); Neutrophils Absolute Auto 4.6 x10*3/uL (2.0-8.3); Platelet Count 230 X10*3/uL (160-400); Red Blood Count 4.42 X10*6/uL (4.20-5.50); Red Cell Distribution Width 13.2 % (11.0-16.0); White Blood Count 7.3 X10*3/uL (4.8-10.8)
== END 2024-08-23 15:48 | disposition home or self-care (01) ==
LOC: HO.LAB 15:47
PROVIDERS: PCP Physician Assistant; Visit Provider Psychiatry & Neurology Neurology
DX: G30.9 Alzheimer's disease, unspecified (principal)
CPT/HCPCS: 36415; 85025

== ENCOUNTER 2024-10-15 15:13 | Outpatient (REF) | payer MEDICARE, SELFPAY ==
--- NOTE | ~2024-10-15 | MR_ITS ---
EXAMINATION: MR BRAIN WITHOUT AND WITH CONTRAST CLINICAL INFORMATION: Brain lesion COMPARISON: August 17, 2024, August 11, 2024 and October 03, 2023. TECHNIQUE: Multiplanar, multisequence MRI of the brain was obtained before and after the intravenous administration of 6.0 mL gadolinium based without reported immediate complications.. FINDINGS: No restricted diffusion. No gross abnormal enhancement within the intra-axial or the extra-axial compartment. There is hyperintense T2 FLAIR signal within the cerebellar vermis, dorsal ashutosh, superior cerebral peduncles, deep periventricular and subcortical deep white matter centrum semiovale and rojas radiata. No acute intracranial hemorrhage, mass effect, midline shift, hydrocephalus or herniation. Prominence of the extra-axial CSF spaces cerebral sulci and ventricles, pronounced in the parietal poles. Probable old lacunar infarcts in the basal ganglia. Sellar/suprasellar region demonstrated no signal abnormality or masses. Craniocervical junction demonstrates normal position of the cerebellar tonsils. Flow-void signal within the main cerebral vessels is normal. There is no signal abnormality within the lingual gyrus nor the cuneus. MR/MR head/brain wo/w con IMPRESSION: No acute stroke/nonhemorrhagic ischemia. No enhancing mass. White matter disease. Statistically may represent small vessel occlusive disease. T2 FLAIR nonenhancing no restricted diffusion signal abnormality, vermis cerebellum and dorsal ashutosh. Neurodegenerative disease/alcoholic etiology cannot be entirely excluded. Atrophy, parietal lobes Electronically signed by: Dany Daugherty MD 10/16/2024 10:24 AM EDT
--- OUTSIDE RECORDS SUMMARY | 2024-10-15 15:37 | XMS_ITS | Clinical Summary ---
Author Organization [facility] Address [address] [place] [address] Care Team Providers Care Manager Fiber Name Role Phone David Lindo MD Primary Care Provider [phone] David Lindo MD Unavailable Medications Multiple Vitamin (Multi-Vitamin) Tab Take 1 [...] pulmonary nodule 05/12/2010 Overview (05/22/2023): Annotation - [id number]: 12 mm Cough 04/21/2010 Pneumonia 04/04/2010 Mitral valve prolapse syndrome 03/19/2010 Bronchiectasis 03/19/2010 Acute bronchitis 03/19/2010 Osteopenia 03/19/2010 Hyperlipidemia 02/24/2010 Impaired fasting glucose 02/24/2010 Immunizations Immunization Administration Dates Next Due COVID-19, mRNA (Moderna Pre Fall 2022) bivalent, 25 mcg/0.25 ml (6 months - 11 years) or 50 mcg/0.5 ml (12+ years) 10/01/2022 COVID-19, mRNA (Pfizer Pre F 2022) Monovalent, 30 mcg/0.3 ml 01/14/2021,06/09/2020,05/19/2020 Covid-19, [...] 60 08/03/2010 3:00 PM EDT Temperature 36.8 C (98.2 F) 08/03/2010 2:43 PM EDT Respiratory Rate 14 08/03/2010 3:00 PM EDT [...] 01/24/2023, 10/01/2022, 01/06/2022, Additional history exists Influenza (Season Ended) 2024 023, 01/06/2022, 01/12/2021, Additional history exists DTaP/Tdap/Td (3 - [...] Relevant to Health Maintenance Care Teams Manager Fiber Relationship Specialty Start Date End Date David Lindo MD [address] [place] [address] PCP - General 11/22/22 David Lindo MD [address] [place] [address] PCP - Backup PCP Internal Medicine 05/19/23
--- OUTSIDE RECORDS SUMMARY | 2024-10-15 15:37 | XMS_ITS | Data Portability ---
Author Organization [place] [facility], [facility] Address [address] [address] Care Team Providers Care Clinical Applications Specialist Name Role Phone MATTEO REES Primary Care [...] color $4060. JULIA appt made in june. Not available 01/02/2024 15:13:55 07/04/2024 07/04/2024 Reviewed daily care and maintenance. Downloaded and demoed service team leader bruce. Going to [place] soon will do follow up when back from that trip . will need to do real ear next time. Not available 07/04/2024 12:29:50 08/08/2024 08/08/2024 Doing very well. Back from recent trip to [place]. Very pleased with new BiCros aids. Hearing much better. Reviewed daily care and maintenance. Recent diagnosis of Alzheimer's - undergoing infusion therapy to treat. 6mo appt made prior to my assisted. [email or web address] Not available 08/08/2024 11:30:19 Plan of Treatment [...] Gastroeso phageal reflux disease without esophagit is 771149714 Active 2022 Gastro-eso phageal reflux disease without esophagiti s; Note: Date Diagnosed: 09/21/2022 2:34 PM (K21.9) Not Available [facility] 4 03:22:19 Asymmetri iliana sensorine ural hearing loss 160620372 Active 2013 Sensorineu ral hearing los asymmetric ; Note: Date Diagnosed: 02/26/2014 1:52 PM (389.16) Not Available [facility] 4 03:22:19 Sensorine ural hearing loss of bilateral ears 329985425 Active 2015 Sensorineu ral hearing loss, bilateral; Note: Date Diagnosed: 08/14/2015 2:42 PM (H90.3) Not Available [facility] 4 03:22:19 Dysphonia 49101282 Active 2022 Hoarseness ; Note: Date Diagnosed: 09/21/2022 2:34 PM (R49.0) Not Available [facility] 4 03:22:19 Problem Notes None recorded. Procedures Surgical History Date Name Laterality Status Provider Name and Address Organization Details Recorded Time 01/02/2024 Comp Audio [id number] completed JUAN ASHRAF, [facility] [address] [facility],[place] [address], [place], [address], [facility] - [facility] 01/02/2024 14:52:34 Imaging Results None recorded. [...] multivita min 09/21 completed Medicati on ID: [id number] Br and Name: multivit duque Sen d [...] SNOMED-CT Code Diagnosis ICD10 Code Diagnosis Note [id number] PAYTON ARORA ORTIZ - [place] [address] [place] [address] 01/02/2024 13:55:43 01/02/2024 15:21:20 Sensorineural hearing loss of bilateral ears 878821324 H90.3 [id number] PAYTON ARORA ORTIZ - [place] [address] [place] [address] 07/04/2024 11:26:28 07/04/2024 13:00:35 Sensorineural hearing loss of bilateral ears 331339837 H90.3 [id number] PAYTON ARORA ORTIZ - [place] [address] [place] [address] 08/08/2024 10:58:01 08/08/2024 11:56:53 Sensorineural hearing loss of bilateral ears 453809327 H90.3 Health Concerns Section Related Observation LastModified by Organization Detai ls LastModified Time None Recorded Concern Status LastModified by Organization Details LastModified Time None Recorded Advance Directives Directive None Recorded Payers Insurance Date Sequence Insurance Name Policy Number Policy William Covered Member ID William Member ID Guarantor Name 08/21/2024 1 [employer] - MEDICARE ADVANTAGE PLAN (MEDICARE REPLACEMENT HMO) [id number] Inés Snow [id number] Inés Snow Notes Date Note Type Note Provider Name and Address Organization Details Recorded Time 01/02/2024 text/html 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 Currently wearing Widex Evoke 440 Fashion BTE BICros hearing aid # 1R/2L slim tube with medium double vent domes dispensed 07/10/2018. JUAN ASHRAF, PAYTON [address] [place] [address],[place] [address], [place], [address], [facility] - [facility] 01/02/2024 15:14:08 07/04/2024 text/html Known [...] made in june. JUAN ASHRAF, AUD [address] [facility],[place] [address], [place], [address], [facility] - [facility] 07/04/2024 12:30:23 08/08/2024 text/html 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 HT stable AU. Currently wearing Oticon Real 1 miniRITE R/PX Cros #2 R/L 85 receivers #8 single vent domes in chroma beige color $4060. JULIA 07/04/2024Set to #3 adaptation. Reviewed daily care and maintenance. Downloaded and demoed service team leader bruce. Going to [place] soon will do follow up when back from that trip . will need to do real ear next time. JUAN ASHRAF, AUD [address] [facility],[place] [address], [place], [address], [facility] - [facility] 08/08/2024 11:30:41 OBGyn Episode No OBEpisode recorded.
--- OUTSIDE RECORDS SUMMARY | 2024-10-15 15:38 | XMS_ITS | Patient Health Record ---
Author Organization [facility] Address [address] [place] [address] Support Name Relationship Address Phone MARIA M LUKE Guarantor Unknown Reason For Referral No Information Plan Of Treatment No Information Insurance Providers Payer Name Payer Address Payer Phone Subscriber Number Group Number Insured Name Patient Relationship to Insured Coverage Start Date Coverage End Date [facility] [address] [place] [address] [phone] [id number] MARIA M MORTON Self - patient is the insured
[2024-10-15] MEDS: gadobutroL 7.5 ML VIAL IVPUSH (16:28)
== END 2024-10-15 15:14 | disposition home or self-care (01) ==
LOC: HO.MRI 15:13
PROVIDERS: PCP Physician Assistant; Visit Provider Psychiatry & Neurology Neurology
DX: G93.9 Disorder of brain, unspecified (principal)
CPT/HCPCS: 70553; A9585

== ENCOUNTER → 2024-10-15 15:46 | Outpatient (BNV) | payer MEDICARE, SELFPAY | PROVIDERS: PCP Physician Assistant; Visit Provider Radiology Diagnostic Radiology | DX: G31.89 Other specified degenerative diseases of nervous system (principal); R90.82 White matter disease, unspecified | CPT/HCPCS: 70553 ==

== ENCOUNTER 2024-12-03 07:57 | Outpatient (AMB) | payer MEDICARE, SELFPAY ==
--- OUTSIDE RECORDS SUMMARY | 2024-12-03 08:00 | XMS_ITS | Clinical Summary ---
Author Organization [facility] Address [address] [place] [address] Care Team Providers Care Film Crew Member Name Role Phone David Lindo MD Primary Care Provider [phone] David Lindo MD Unavailable [phone] Medications Multiple Vitamin (Multi-Vitamin) Tab Take 1 [...] pulmonary nodule 05/12/2010 Overview (05/22/2023): Annotation - [id number]: 12 mm Cough 04/21/2010 Pneumonia 04/04/2010 Mitral [...] 10/01/2022, 01/06/2022, Additional history exists Influenza (#1) 2024 01/24/2023, 12/18, 01/12/2021, Additional history exists DTaP/Tdap/Td (3 - Td or Tdap) 09/12/2031 09/11/2021, 04/06/2010, 03/23/2005 Zoster (Zostavax) Discontinued 06/16/2007 Bone Density Completed 04/03/2008 Mammogram/Breast Imaging Discontinued 02/10/2010, 01/17 Zoster (Shingrix) Completed 01/20/2022, , 06/16/2007 Pneumococcal 50+ years Completed 03/15/2023, 2003 RSV Completed 03/29/2023 HPV Vaccine (No Doses Required) Completed Hep A Aged Out No longer eligi [...] Recently Relevant to Health Maintenance Care Teams Film Crew Member Relationship Specialty Start Date End Date David Lindo MD [address] [place] [address] PCP - General 11/22/22 David Lindo MD [address] [place] [address] PCP - Backup PCP Internal Medicine 05/19/23
--- OUTSIDE RECORDS SUMMARY | 2024-12-03 08:00 | XMS_ITS | Patient Health Record ---
Author Organization [facility] Address [address] [place] [address] Support Name Relationship Address Phone MARIA M LUKE Guarantor Unknown [phone] Reason For Referral No Information Plan Of Treatment No Information Insurance Providers Payer Name Payer Address Payer Phone Subscriber Number Group Number Insured Name Patient Relationship to Insured Coverage Start Date Coverage End Date [facility] [address] [place] [address] [id number] MARIA M MORTON Self - patient is the insured
--- OUTSIDE RECORDS SUMMARY | 2024-12-03 08:00 | XMS_ITS | Encounter Summary ---
Author Organization [facility] Address [address] [facility] [address] [place] [address] Phone Care Team Providers Care Etcher [employer]ed Circuit Boards Name Role Phone Ean Balderas MD Primary Care Provider [phone] Dorothea Parikh NP Primary Care Provider [phone] Luiza Stack Primary Care Provider [phone] Encounter Details Date Type Department Care Team (Latest Contact Info) Description 07/04/2017 Ancillary Orders Virtual Department [address] [place] [address] Shelton Silva MD [address] [facility], [facility] [address] [place] [address] [email or web address] Bronchiectasis without complication Social History Tobacco Use Types Packs/Day Years Used Date Smoking Tobacco: Never Assessed Comments Unknown Sex and Gender Information Value Date Recorded Sex Assigned at Female 10/16/2020 12:48 PM EDT Legal Sex Female 6:07 PM EDT Gender Identity Female 10/16/2020 12:48 PM EDT Sexual Orientation Not on file documented as of this encounter Plan of Treatment Upcoming Encounters Date Type Department Care Team (Late st Contact Info) Description 02/28/2025 2:00 PM EST Office Visit [facility] [address] [facility] [place] [place], [place] [id number] Roberto Renteria MD, MS [address] [id number] [email or web address] documented as of this encounter Results * XR CHEST PA AND LATERAL 2 VIEWS (07/12/2017 11:31 AM EDT) Anatomical Region Laterality Modality Chest Radiographic Lynda ging 07/12/2017 11:3 4 AM EDT Impressions 07/12/2017 11:37 AM EDT Stable plain film appearance of the chest with a chronically nodular interstitial pattern and mild hyperinflation. No obviously progressive changes of bronchiectasis, acute pathology or signs of malignancy. POS [id number] Narrative 07/12/2017 11:37 AM EDT PA and lateral chest, 2 views Compare 01/11/2017. The findings are very similar to the last exam with mild bilateral hyperinflation and a nodular interstitial pattern, particularly in the right hemithorax, but no new interstitial disease or infiltrate is apparent. No dominant nodules/masses. No effusion or signs of pulmonary edema. The heart has not enlarged. No gross mediastinal adenopathy or other widening. Procedure Note Altaf Dill MD - 07/12/2017 PA and lateral chest, 2 views Compare 01/11/2017. The findings are very similar to the last exam with mild bilateralhyperinflation and a nodular interstitial pattern, particularly in theright hemithorax, but no new interstitial disease or infiltrate isapparent. No dominant nodules/masses. No effusion or signs of pulmonary edema. The heart has not enlarged. No gross mediastinal adenopathy or otherwidening. IMPRESSION: Stable plain film appearance of the chest with a chronically nodularinterstitial pattern and mild hyperinflation. No obviously progressivechanges of bronchiectasis, acute pathology or signs of malignancy. POS [id number] Shelton Silva MD IMG XR CHEST Final Result documented in this encounter Visit Diagnoses Diagnosis Bronchiectasis without complication Bronchiectasis without complication documented in this encounter Care Teams Etcher [employer]ed [employer] Bo[employer] Relationship Specialty Start Date End Date Abare, Ean Lex, MD PCP - General Internal Medicine 07/12/17 11/02/21 Dorothea Parikh NP [address] [place] [address] PCP - General 11/03/21 11/23/24 Luiza Stack PA [address] [place] [address] PCP - General Physician Associate Professor Of Medicine 11/24/24 documented as of this encounter Additional Source Comments The information contained in this document represents components of the legal health record. It is not the complete legal health record.[email or web address]
--- NOTE | 2024-12-03 08:08 | A.OFFVIS_ITS ---
Intake Visit Reasons: Just d/c from hospital/ mri review Allergies sulfamethoxazole (From Bactrim) Allergy (Verified 02/10/24 09:57) Vomiting trimethoprim (From Bactrim) Allergy (Verified 02/10/24 09:57) Vomiting Medication List - Last Reconciled 12/03/24 by Lilia Wu MD [id number] (Kisunla) 700 mg IV Q4W donepezil 10 mg PO DAILY doxepin 3 mg PO BEDTIME HPI Comments Details: 79 yo woman with c/o forgetfulness, loss of balance, falling, and hypersomnia with exam revealing features of mild apathy and cerebellar dysfunction. MRI brain revealed an atypical midline cerebellar lesion, mild to moderate cerebral microvascular disease, and mild cortical atrophy. CSF testing and brain PET in 2023 were suggestive of Alzheimer disease. Neuropsychological test revealed cognitive decline but no behavioral issues. 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 Leqembi was started on Jun 06, 2024 and she had 4 infusions after which she had the MRI. This MRI revealed a new right medial temporal non enhancing lesion, probably an ARIA, and Leqembi was stopped. She was recently admitted at [facility] with pneumonia. She said that there she was diagnosed with an episode of atrial fibrillation but was not started on anticoagulation or aspirin. According to her, she was told that this was due to her sickness. She had not seen her professor of chemistry since then. Now she was feeling better, physically and mentally. No more seizure-like episode [facility] Medical History (Updated 12/03/24 @ 08:18 by Lilia Wu MD) Seizure disorder Brain lesion Leukoencephalopathy Cerebellar ataxia Hypersomnia History of fall ROD (obstructive sleep apnea) Surgical History (Updated 02/10/24 @ 10:03 by Kane Benson RN) History of bunionectomy History of umbilical hernia repair Social History (Updated 02/10/24 @ 10:00 by Kane Benson RN) Patient Tobacco Use Status: Never used Tobacco Review of Systems Const Details: Tendency to use dose of during daytime and lethargy. Physical Exam Neuro Other: Mental Status: Alert and oriented to person, place, and time. Normal attention. Normal spontaneous speech, fluency, and comprehension. Affect is appropriate. Cranial Nerves: CN II: Visual soria full to confrontation, visual acuity intact. CN III, IV, : Pupils equal, round, reactive to light and accommodation. Extraocular movements are normal. CN V: Facial sensation is normal. CN VII: Facial movements symmetrical. CN VIII: Hearing intact to bedside conversation is normal. CN IX, X: Palate elevates symmetrically. CN XI: Shoulder shrug and head turn symmetrical. CN XII: Tongue midline without atrophy or fasciculations. Extrapyramidal: Full facial expressions and blinking. No rigidity. Movements are appropriate with no tremor or abnormality. Speech: Normal; no dysarthria or tremor. Assessment & Plan Assessment & Plan (1) Alzheimer dementia: Comment: MRI brain WO at [facility] [place] in September 2024: R occipital lesion has disappears, likely ARIA, rest is same EEG at off in September 2024: WNL MRI brain WO at [facility] [place] on Aug 11, 2024: New R medial occipital lobe expansile type lesion MRI brain W at [facility] [place] on August 17, 2024: No enhancement in the lesion Percivity serum test in 2023: Amyloid +, Ape E3/E4 heterozygous PET brain at [place] in Mar 2024: + for amyloid neuritic plaques (AD) Neuropsychological eval at off in Mar 2024: Objective cognitive decline detected LP at [facility] [place] in Jan 2024: OP 6cm, WBCs 0, RBCs 0, Glu 67, Pro 30.4, IgG ind: normal, OCBs absent. AD test: +. MRI brain WO at [facility] [place] in October 2023: Mild to mod MVD, atypical midline cerebellar FLAIR hyperintensity MRI brain W at [facility] [place] in Nov 2023: No enhancement Code(s): G30.9 - Alzheimer's disease, unspecified; F02.80 - Dementia in other diseases classified elsewhere, unspecified severity, without behavioral disturbance, psychotic disturbance, mood disturbance, and anxiety Category: Medical Qualifiers: Alzheimer's disease onset: late onset Dementia severity: mild Dementia behavioral or psychological symptom: without behavioral, psychotic, or mood disturbance or anxiety Qualified Code(s): G30.1 - Alzheimer's disease with late onset; F02.A0 - Dementia in other diseases classified elsewhere, mild, without behavioral disturbance, psychotic disturbance, mood disturbance, and anxiety Plan Impression: a: Alzheimer dementia, mild to mod, w/o behavioral issues. Leqembi caused ARIA and it was stopped. b: Recent admission at [facility] with pneumonia and according to her an episode of a fibb Rec: a: Donepezil 10mg a day b: Start memantine 5mg bid c: See your professor of chemistry d: Baby aspirin daily Medications: New memantine (Namenda) 5 mg PO BID 180 tabs 0RF Coding Level of Care Code Est Pt Level 5 (03187) Diagnoses Mild late onset Alzheimer's dementia without behavioral disturbance, psychotic disturbance, mood disturbance, or anxiety G30.1; F02.A0 Alzheimer's disease onset: late onset Dementia severity: mild Dementia behavioral or psychological symptom: without behavioral, psychotic, or mood disturbance or anxiety
== END 2024-12-03 08:26 | disposition home or self-care (01) ==
LOC: HO.HSM 07:57
PROVIDERS: PCP Physician Assistant; Visit Provider Psychiatry & Neurology Neurology
DX: G30.1 Alzheimer's disease with late onset (principal); F02.A0 Dementia in other diseases classified elsewhere, mild, without behavioral disturbance, psychotic disturbance, mood disturbance, and anxiety
CPT/HCPCS: 99214

== ENCOUNTER → 2024-12-03 07:57 | Outpatient (BNVA) | payer MEDICARE, SELFPAY | PROVIDERS: PCP Physician Assistant; Visit Provider Psychiatry & Neurology Neurology | DX: G30.1 Alzheimer's disease with late onset (principal); F02.A0 Dementia in other diseases classified elsewhere, mild, without behavioral disturbance, psychotic disturbance, mood disturbance, and anxiety | CPT/HCPCS: 99212 ==